=== PATIENT | female | born 1965 | race African-American/Black ===

== ENCOUNTER 2018-01-20 07:02 | Emergency (ER) | payer MEDICAID, OTHER ==
[~2018-01-20] VITALS: Ht 175.3 cm; Wt 82.0 kg
[~2018-01-20 07:02] MED LIST: CYCL10TA7 PO; GABA-529 PO; OMEP20CA10 PO
[2018-01-20] MEDS ORDERED: KETOROLAC 30MG/ML VIAL IV ONE (07:45)
[2018-01-20] MEDS ORDERED: KETOROLAC 30MG/ML VIAL IM ONE (08:00)
[2018-01-20 08:33] LABS: CLARITY URINE CLOUDY (CLEAR); COLOR URINE YELLOW (YELLOW); KETONES URINE NEGATIVE (NEGATIVE); LEUKOCYTE ESTERASE URINE NEGATIVE (NEGATIVE); NITRITE URINE NEGATIVE (NEGATIVE); OCCULT BLOOD URINE NEGATIVE (NEGATIVE); PH URINE 6.5 (4.5-8.0); PROTEIN URINE NEGATIVE (NEGATIVE); SPECIFIC GRAVITY URINE 1.026 (1.005-1.030)
[2018-01-20 09:32] VITALS: BP 178/96
== END 2018-01-20 09:34 | disposition home or self-care (01) ==
LOC: ER 07:02
DX: M54.5 Low back pain (principal); M79.661 Pain in right lower leg; F17.200 Nicotine dependence, unspecified, uncomplicated; F12.10 Cannabis abuse, uncomplicated; I10 Essential (primary) hypertension; Z90.710 Acquired absence of both cervix and uterus
CPT/HCPCS: 81003; 96372; 99283; J1885

== ENCOUNTER 2018-11-18 06:44 | Emergency (ER) | payer MEDICAID, OTHER ==
[~2018-11-18] VITALS: Ht 175.3 cm; Wt 87.0 kg
[~2018-11-18 06:44] MED LIST changes: -OMEP20CA10 PO; +OMEP20CA5 PO
[2018-11-18] MEDS ORDERED: METRONIDAZOLE 500 MG PREMIX 100 ML IV ONE (07:45)
[2018-11-18] MEDS ORDERED: LEVOFLOXACIN 750MG PREMIX 150 ML IV ONE (07:45)
[2018-11-18] MEDS: OXYCODONE HCL/ACETAMINOPHEN 5/325MG TABLET PO ONE (08:14)
[2018-11-18 08:48] LABS: CLARITY URINE CLEAR (CLEAR); COLOR URINE YELLOW (YELLOW); KETONES URINE NEGATIVE (NEGATIVE); LEUKOCYTE ESTERASE URINE TRACE (NEGATIVE); NITRITE URINE NEGATIVE (NEGATIVE); OCCULT BLOOD URINE NEGATIVE (NEGATIVE); PROTEIN URINE NEGATIVE (NEGATIVE); SPECIFIC GRAVITY URINE 1.013 (1.005-1.030)
[2018-11-18 09:25] VITALS: BP 132/87
== END 2018-11-18 09:27 | disposition home or self-care (01) ==
LOC: ER 06:44
DX: N39.0 Urinary tract infection, site not specified (principal); I10 Essential (primary) hypertension; E78.5 Hyperlipidemia, unspecified; F12.10 Cannabis abuse, uncomplicated; Z90.710 Acquired absence of both cervix and uterus; Z79.899 Other long term (current) drug therapy
CPT/HCPCS: 81003; 99283

== ENCOUNTER 2019-03-04 06:08 | Emergency (ER) | payer MEDICAID, OTHER ==
[~2019-03-04] VITALS: Ht 175.3 cm; Wt 86.0 kg
[2019-03-04] MEDS ORDERED: KETOROLAC 60MG/2ML VIAL IM ONE (06:45)
[2019-03-04 08:52] VITALS: BP 128/78
== END 2019-03-04 08:55 | disposition home or self-care (01) ==
LOC: ER 06:08
DX: S83.8X2A Sprain of other specified parts of left knee, initial encounter (principal); W01.0XXA Fall on same level from slipping, tripping and stumbling without subsequent striking against object, initial encounter; Y93.89 Activity, other specified; Y92.512 Supermarket, store or market as the place of occurrence of the external cause
CPT/HCPCS: 73562; 96372; 99283; J1885

== ENCOUNTER 2019-04-23 07:07 | Emergency (ER) | payer MEDICAID ==
[~2019-04-23] VITALS: Ht 175.3 cm; Wt 77.0 kg
[~2019-04-23 07:07] MED LIST changes: +OMEP20CA14 PO; -OMEP20CA5 PO
[2019-04-23] MEDS ORDERED: ALBUTEROL (07:34)
[2019-04-23] MEDS ORDERED: ATENOLOL (07:34)
[2019-04-23] MEDS ORDERED: HYDROCHLOROTHIAZIDE (07:34)
[2019-04-23] MEDS ORDERED: KETOROLAC 30MG/ML VIAL IM ONE (08:15)
[2019-04-23 14:27] VITALS: BP 148/78
== END 2019-04-23 14:00 | disposition home or self-care (01) ==
LOC: ER 07:07
DX: M54.12 Radiculopathy, cervical region (principal); R20.0 Anesthesia of skin; K21.9 Gastro-esophageal reflux disease without esophagitis; E78.00 Pure hypercholesterolemia, unspecified; I10 Essential (primary) hypertension; G43.909 Migraine, unspecified, not intractable, without status migrainosus; F12.10 Cannabis abuse, uncomplicated; F17.200 Nicotine dependence, unspecified, uncomplicated; Z90.710 Acquired absence of both cervix and uterus; Z79.899 Other long term (current) drug therapy
CPT/HCPCS: 70450; 72125; 72141; 73030; 81025; 96372; 99284; J1885

== ENCOUNTER 2019-10-21 13:57 | Emergency (ER) | payer MEDICAID ==
[~2019-10-21] VITALS: Ht 175.3 cm; Wt 84.0 kg
[~2019-10-21 13:57] MED LIST changes: +ALBUTEROL; +ATENOLOL; +HYDROCHLOROTHIAZIDE
[2019-10-21] MEDS ORDERED: SODIUM CHLORIDE 0.9% 1,000 ML IV ONE (15:26)
[2019-10-21] MEDS ORDERED: KETOROLAC 30MG/ML VIAL IV STA (15:26)
[2019-10-21 15:43] LABS: CLARITY URINE CLEAR (CLEAR); COLOR URINE YELLOW (YELLOW); KETONES URINE TRACE (NEGATIVE); LEUKOCYTE ESTERASE URINE TRACE (NEGATIVE); NITRITE URINE NEGATIVE (NEGATIVE); OCCULT BLOOD URINE NEGATIVE (NEGATIVE); PH URINE 5.5 (4.5-8.0); PROTEIN URINE NEGATIVE (NEGATIVE); SPECIFIC GRAVITY URINE 1.022 (1.005-1.030)
[2019-10-21 15:49] LABS: BASOPHILS % 1.5 % (0.0-2.0); EOSINOPHILS % 1.4 % (0.0-5.0); HEMATOCRIT. 34.5 % (36.0-48.0); HEMOGLOBIN. 11.9 g/dL (12.0-16.0); LYMPHOCYTES % 43.9 % (20.0-50.0); MEAN CORPUSCULAR HEMOGLOBIN 30.8 pg (28.0-32.0); MEAN CORPUSCULAR VOLUME 89.3 fL (81.0-99.0); MEAN PLATELET VOLUME 9.3 fl (7.4-10.4); MONOCYTES % 8.1 % (2.0-8.0); NEUTROPHILS % 45.1 % (40.0-76.0); PLATELET 230 x1000/uL (130-400); RED BLOOD CELL COUNT 3.86 mill/uL (4.2-5.4); RED CELL DISTRIBUTION WIDTH 13.8 % (11.6-14.6)
[2019-10-21 15:50] LABS: CHLORIDE 106 mEq/L (98-107)
[2019-10-21 16:34] LABS: PROTHROMBIN TIME 10.1 sec (9.6-11.0)
[2019-10-21 18:05] VITALS: BP 130/78
== END 2019-10-21 18:05 | disposition home or self-care (01) ==
LOC: ER 13:57
DX: N30.00 Acute cystitis without hematuria (principal); I10 Essential (primary) hypertension; E78.00 Pure hypercholesterolemia, unspecified; J45.909 Unspecified asthma, uncomplicated; K21.9 Gastro-esophageal reflux disease without esophagitis
CPT/HCPCS: 36415; 74176; 80053; 81003; 85025; 85610; 93005; 96374; 99285; J1885; J7030

== ENCOUNTER 2020-07-31 06:39 | Emergency (ER) | payer MEDICAID, OTHER ==
[~2020-07-31] VITALS: Ht 175.3 cm; Wt 90.0 kg
[2020-07-31] MEDS ORDERED: DIPHENHYDRAMINE 50MG/ML VIAL IV ONE (07:15)
[2020-07-31] MEDS ORDERED: FAMOTIDINE 20MG/2ML VIAL IV ONE (07:15)
[2020-07-31] MEDS ORDERED: METHYLPREDNISOLONE SOD SUCC 125 MG/2 ML VIAL IV ONE (07:15)
[2020-07-31 08:20] LABS: EOSINOPHILS % 6.1 % (0.0-5.0); HEMATOCRIT. 46.2 % (36.0-48.0); HEMOGLOBIN. 15.2 g/dL (12.0-16.0); LYMPHOCYTES % 17.6 % (20.0-50.0); MEAN CORPUSCULAR HEMOGLOBIN 29.5 pg (28.0-32.0); MEAN CORPUSCULAR VOLUME 89.5 fL (81.0-99.0); MEAN PLATELET VOLUME 8.8 fl (7.4-10.4); MONOCYTES % 6.6 % (2.0-8.0); NEUTROPHILS % 68.7 % (40.0-76.0); PLATELET 257 x1000/uL (130-400); RED BLOOD CELL COUNT 5.16 mill/uL (4.2-5.4); RED CELL DISTRIBUTION WIDTH 13.6 % (11.6-14.6)
[2020-07-31 08:26] LABS: CHLORIDE 109 mEq/L (98-107)
[2020-07-31 08:30] LABS: D-DIMER 0.26 mg/L FEU (<0.50); INR 1.1; PARTIAL THROMBOPLASTIN TIME 26.5 sec (23.4-31.0); PROTHROMBIN TIME 12.2 sec (9.6-11.0)
[2020-07-31] MEDS ORDERED: DIPH25CA83 MT (09:29)
[2020-07-31] MEDS ORDERED: P50 PO (09:29)
[2020-07-31 11:56] VITALS: BP 143/79
== END 2020-07-31 11:57 | disposition home or self-care (01) ==
LOC: ER 06:39
DX: R07.89 Other chest pain (principal); L23.9 Allergic contact dermatitis, unspecified cause; R03.0 Elevated blood-pressure reading, without diagnosis of hypertension
CPT/HCPCS: 36415; 71045; 80053; 83880; 84484; 85025; 85379; 85610; 85730; 93005; 96374; 96375; 99285; J1200; J2930; J3490

== ENCOUNTER 2022-09-23 07:45 | Emergency (ER) | payer MEDICAID ==
[~2022-09-23] VITALS: Ht 175.3 cm; Wt 87.3 kg
[~2022-09-23 07:45] MED LIST changes: +CYCL10TA21 PO; -CYCL10TA7 PO; +DIPH25CA83 MT; +P50 PO
[2022-09-23 07:47] VITALS: O2SAT 100
[2022-09-23 08:28] LABS: CHLORIDE 107 mEq/L (98-107)
[2022-09-23 08:29] LABS: BASOPHILS % 1.1 % (0.0-2.0); EOSINOPHILS % 1.6 % (0.0-5.0); HEMOGLOBIN. 12.1 g/dL (12.0-16.0); LYMPHOCYTES % 29.4 % (20.0-50.0); MEAN CORPUSCULAR VOLUME 89.1 fL (81.0-99.0); MEAN PLATELET VOLUME 8.8 fl (7.4-10.4); MONOCYTES % 7.2 % (2.0-8.0); NEUTROPHILS % 60.7 % (40.0-76.0); PLATELET 294 x1000/uL (130-400); RED BLOOD CELL COUNT 4.04 mill/uL (4.2-5.4); RED CELL DISTRIBUTION WIDTH 14.6 % (11.6-14.6)
[2022-09-23 09:47] LABS: CLARITY URINE CLEAR (CLEAR); COLOR URINE YELLOW (YELLOW); KETONES URINE NEGATIVE (NEGATIVE); LEUKOCYTE ESTERASE URINE 1+ (NEGATIVE); NITRITE URINE NEGATIVE (NEGATIVE); OCCULT BLOOD URINE TRACE (NEGATIVE); PROTEIN URINE NEGATIVE (NEGATIVE); SPECIFIC GRAVITY URINE 1.012 (1.005-1.030)
[2022-09-23 10:39] VITALS: BP 116/62; PULSE 62; RESP 16; TEMP 98.3
[2022-09-23] MEDS ORDERED: GABA-529 MT (11:30)
[2022-09-23] MEDS ORDERED: CYCL10TA21 MT (11:30)
== END 2022-09-23 11:40 | disposition home or self-care (01) ==
LOC: ER 07:45
DX: R07.89 Other chest pain (principal); E78.00 Pure hypercholesterolemia, unspecified; J45.909 Unspecified asthma, uncomplicated; Z79.899 Other long term (current) drug therapy; Z98.890 Other specified postprocedural states; Z86.59 Personal history of other mental and behavioral disorders
CPT/HCPCS: 36415; 71045; 80053; 81003; 81025; 84484; 85025; 93005; 99285

== ENCOUNTER 2023-11-10 07:10 | Emergency (ER) | payer MEDICAID ==
[~2023-11-10] VITALS: Ht 175.3 cm; Wt 90.0 kg
[~2023-11-10 07:10] MED LIST changes: +ALBU18HF2 IH; +ALBU6.7H15 INH; -ALBUTEROL; +ATEN-42 PO; -ATENOLOL; +ATOR20TA65 PO; -CYCL10TA21 PO; -DIPH25CA83 MT; +FLUT1DIS3 INH; -GABA-529 PO; +HYDR12.54 PO; -HYDROCHLOROTHIAZIDE; +IBUP-2030 PO; +P20 MT; -P50 PO; +VERA120T23 PO
[2023-11-10 07:32] VITALS: O2SAT 99
[2023-11-10] MEDS ORDERED: TOPUD PO (09:20)
[2023-11-10 09:32] VITALS: BP 140/77; PULSE 72; RESP 16; TEMP 98.3; O2SAT 99
== END 2023-11-10 11:01 | disposition home or self-care (01) ==
LOC: ER 07:10
DX: R60.9 Edema, unspecified (principal); J45.909 Unspecified asthma, uncomplicated; K21.9 Gastro-esophageal reflux disease without esophagitis; E78.00 Pure hypercholesterolemia, unspecified; I10 Essential (primary) hypertension; G43.909 Migraine, unspecified, not intractable, without status migrainosus; F12.90 Cannabis use, unspecified, uncomplicated; Z90.710 Acquired absence of both cervix and uterus; Z98.890 Other specified postprocedural states
CPT/HCPCS: 93971; 99284

== ENCOUNTER 2023-11-24 12:48 | Emergency (ER) | payer MEDICAID ==
[~2023-11-24] VITALS: Ht 175.3 cm; Wt 80.0 kg
[~2023-11-24 12:48] MED LIST changes: +TOPUD PO
[2023-11-24 12:51] VITALS: O2SAT 100
[2023-11-24 15:01] LABS: HEMATOCRIT. 35.2 % (36.0-48.0); HEMOGLOBIN. 11.4 g/dL (12.0-16.0); MEAN CORPUSCULAR HEMOGLOBIN 28.6 pg (28.0-32.0); MEAN CORPUSCULAR HGB CONC 32.5 g/dL (31.0-37.0); MEAN CORPUSCULAR VOLUME 88.1 fL (81.0-99.0); PLATELET 173 x1000/uL (130-400); RED BLOOD CELL COUNT 3.99 mill/uL (4.2-5.4); RED CELL DISTRIBUTION WIDTH 14.6 % (11.6-14.6); WHITE BLOOD COUNT 3.9 x1000/uL (4.5-11.0)
[2023-11-24 15:02] LABS: DIFFERENTIAL COMMENT 1
[2023-11-24 15:04] LABS: CHLORIDE 101 mEq/L (98-107); POTASSIUM 2.9 mEq/L (3.5-5.1); SODIUM 134 mEq/L (136-145)
[2023-11-24 15:05] LABS: CARBON DIOXIDE 29 mEq/L (21-32)
[2023-11-24 15:10] LABS: GLUCOSE 110 mg/dL (70-105); UREA NITROGEN BLOOD 9 mg/dL (9-23)
[2023-11-24 15:12] LABS: TROPONIN I HIGH SENSITIVITY < 4 ng/L (3.0-34)
[2023-11-24 16:00] VITALS: BP 117/68; PULSE 70; RESP 18; TEMP 36.78072; O2SAT 100
[2023-11-24] MEDS ORDERED: NIRM1TAB8 PO (16:21)
[2023-11-24 18:25] LABS: PLATELET ESTIMATE NORMAL
== END 2023-11-24 16:25 | disposition home or self-care (01) ==
LOC: ER 12:53
DX: U07.1 COVID-19 (principal); R55 Syncope and collapse; J45.909 Unspecified asthma, uncomplicated; K21.9 Gastro-esophageal reflux disease without esophagitis; E78.00 Pure hypercholesterolemia, unspecified; I10 Essential (primary) hypertension; G43.909 Migraine, unspecified, not intractable, without status migrainosus; F12.90 Cannabis use, unspecified, uncomplicated; Z90.710 Acquired absence of both cervix and uterus; Z98.890 Other specified postprocedural states
CPT/HCPCS: 36415; 71045; 80048; 82962; 83880; 84484; 85025; 87426; 99284

== ENCOUNTER 2024-11-16 17:55 | Emergency (ER) | payer MEDICAID ==
[~2024-11-16] VITALS: Ht 172.7 cm; Wt 91.0 kg
[~2024-11-16 17:55] MED LIST changes: +NIRM1TAB8 PO
[2024-11-16 18:02] VITALS: O2SAT 97
[2024-11-16] MEDS ORDERED: NITROGLYCERIN 0.4MG TABLET SL SL PRN (18:30)
[2024-11-16 18:41] LABS: BASOPHILS % 1.4 % (0.0-2.0); EOSINOPHILS % 1.5 % (0.0-5.0); HEMATOCRIT. 32.6 % (36.0-48.0); HEMOGLOBIN. 10.5 g/dL (12.0-16.0); LYMPHOCYTES % 31.3 % (20.0-50.0); MEAN PLATELET VOLUME 8.8 fl (7.4-10.4); MONOCYTES % 7.1 % (2.0-8.0); NEUTROPHILS % 58.7 % (40.0-76.0); PLATELET 257 x1000/uL (130-400); RED BLOOD CELL COUNT 3.94 mill/uL (4.2-5.4); RED CELL DISTRIBUTION WIDTH 16.1 % (11.6-14.6)
[2024-11-16] MEDS: ASPIRIN 81MG TABLET PO ONE (18:46)
[2024-11-16 18:54] LABS: CREATININE 1.1 mg/dL (0.6-1.0); UREA NITROGEN BLOOD 10 mg/dL (9-23)
[2024-11-16 18:55] LABS: TROPONIN I HIGH SENSITIVITY < 4 ng/L (3.0-34)
[2024-11-16 18:56] LABS: ASPARTATE AMINOTRANSFERASE 19 IU/L (<34); BILIRUBIN DIRECT < 0.1 mg/dL (<=3.0); BILIRUBIN TOTAL 0.3 mg/dL (0.1-1.0)
[2024-11-16 18:57] LABS: PROTEIN TOTAL 6.8 g/dL (6.0-8.3)
[2024-11-16 19:26] LABS: INR 0.9
[2024-11-16 20:22] LABS: TROPONIN I HIGH SENSITIVITY < 4 ng/L (3.0-34)
[2024-11-16 21:03] VITALS: BP 140/81; PULSE 64; RESP 15; TEMP 36.7; O2SAT 97
== END 2024-11-16 21:06 | disposition home or self-care (01) ==
LOC: ER 17:55
DX: R06.02 Shortness of breath (principal); R07.89 Other chest pain; J45.909 Unspecified asthma, uncomplicated; F12.90 Cannabis use, unspecified, uncomplicated; M19.90 Unspecified osteoarthritis, unspecified site; I10 Essential (primary) hypertension; F17.210 Nicotine dependence, cigarettes, uncomplicated; E78.00 Pure hypercholesterolemia, unspecified; Z79.51 Long term (current) use of inhaled steroids; Z90.710 Acquired absence of both cervix and uterus; Z79.899 Other long term (current) drug therapy
CPT/HCPCS: 80076; 80048; 83880; 85025; 85379; 85610; 85730; 84484; 36415; 71045; 93005; 99285; Z7610